=== PATIENT | female | born 1980 | race Caucasian/White ===

== ENCOUNTER 2019-03-23 20:23 | Emergency (ER) | payer OTHER ==
--- NOTE | 2019-03-23 20:38 | PDOC ---
Rapid Medical Evaluation Medical Evaluation: 03/23/19 20:28 I have performed a brief in-person evaluation of this patient. The patient presents with a chief complaint of: Mid upper/CP x several months. States she sometimes notices a bulge in epigastric area that would spontaneously resolve (Has video on her phone demonstrating this). No change in BM, n/v/f/c. Seen by PMD and in UC in the past w/ no clear dx. Pertinent physical exam findings:Well roque and stable I have ordered the following:ekg The patient will proceed to the ED for further evaluation. Discharge Disposition - Diagnosis Chest pain Qualifiers: Chest pain type: unspecified Qualified Code(s): R07.9 - Chest pain, unspecified - Referrals - Patient Instructions - Post Discharge Activity
[2019-03-23 20:39] VITALS: TEMP 98; BMI 27.4
[2019-03-23 21:56] LABS: BASO % 0.2 % (0-2.0); EOS % 0.8 % (0-4.5); HEMATOCRIT 36.3 % (32.4-45.2); HEMOGLOBIN 12.3 GM/dL (10.7-15.3); LYMPH % 32.5 % (8-40); MCH 31.2 pg (25.7-33.7); MCHC 33.8 g/dl (32.0-36.0); MEAN CELL VOLUME 92.4 fl (80-96); MEAN PLT VOLUME 8.9 fl (7.5-11.1); MONO % 7.8 % (3.8-10.2); NEUT % 58.7 % (42.8-82.8); PLATELET COUNT 261 K/MM3 (134-434); RBC 3.93 M/mm3 (3.60-5.2); RDW 12.9 % (11.6-15.6); WHITE BLOOD COUNT 9.5 K/mm3 (4.0-10.0)
[2019-03-23 22:29] LABS: ALBUMIN 4.1 g/dl (3.4-5.0); ALK PHOS 61 U/L (45-117); ANION GAP 5 MMOL/L (8-16); BILIRUBIN,TOTAL 0.3 mg/dL (0.2-1); BLOOD UREA NITROGEN 13.8 mg/dL (7-18); CHLORIDE 105 mmol/L (98-107); CO2 27 mmol/L (21-32); CREATININE 0.8 mg/dL (0.55-1.3); GLUCOSE,RANDOM 85 mg/dL (74-106); LIPASE 153 U/L (73-393); POTASSIUM 4.1 mmol/L (3.5-5.1); SGOT/AST 13 U/L (15-37); SGPT/ALT 18 U/L (13-61); SODIUM 137 mmol/L (136-145); TOT PROT 7.7 g/dl (6.4-8.2)
--- NOTE | 2019-03-23 22:57 | PDOC ---
History of Present Illness - General Chief Complaint: Pain Stated Complaint: CHEST PAIN Time Seen by Provider: 03/23/19 20:35 History Source: Patient - History of Present Illness Initial Comments: 03/23/19 22:55 38y F with no significant PMH presenting to ED with complaints of a bump in the abdomen/lower chest with pain. Pt states that she has been having this problem for at least 3 years. The bump appears sporadically but assoiciated when patient flexes the neck and does a "crunching motion" when she is in bed. The bump is L sided and feels like a pam horse. She also endorses soreness in the back. She has not been taking anything for the pain. NO symptoms at this time other than back soreness. Denies n/v/d, chest pain, sob, headache, injury, abdominal surgeries. 03/24/19 08:05 Past History - Past Medical History Allergies/Adverse Reactions: Allergies Allergy/AdvReac Type Severity Reaction Status Date / Time No Known Allergies Allergy Verified 03/23/19 20:39 Home Medications: Ambulatory Orders NK [No Known Home Medication] 03/23/19 COPD: No - Psycho Social/Smoking Cessation Hx Smoking History: Never smoked Review of Systems - Review of Systems Constitutional: No: Symptoms Reported HEENTM: No: Symptoms Reported Respiratory: Yes: See HPI Cardiac (ROS): Yes: See HPI ABD/GI: Yes: See HPI : No: Symptoms Reported Musculoskeletal: Yes: See HPI Integumentary: Yes: See HPI Neurological: No: Symptoms reported *Physical Exam - Vital Signs Last Vital Signs Temp Pulse Resp BP Pulse Ox 98 F 70 16 108/67 100 03/23/19 20:35 03/23/19 21:36 03/23/19 21:36 03/23/19 21:36 03/23/19 21:36 - Physical Exam General Appearance: Yes: Nourished, Appropriately Dressed. No: Apparent Distress HEENT: positive: EOMI, GANESH, Normal ENT Inspection Neck: positive: Trachea midline, Supple. negative: Tender Respiratory/Chest: positive: Lungs Clear, Normal Breath Sounds. negative: Chest Tender Cardiovascular: positive: Regular Rhythm, Regular Rate, S1, S2. negative: Edema , JVD, Murmur Gastrointestinal/Abdominal: positive: Normal Bowel Sounds, Soft. negative: Tender Musculoskeletal: negative: CVA Tenderness, Vertebral Tenderness Extremity: positive: Normal Capillary Refill. negative: Pedal Edema Integumentary: positive: Normal Color, Dry, Warm Neurologic: positive: mechanical inspector II-XII NML intact, Fully Oriented, Alert, Normal Mood/ Affect, Normal Response, Motor Strength 06/25 ED Treatment Course - LABORATORY CBC & Chemistry Diagram: 03/23/19 21:25 03/23/19 21:25 - ADDITIONAL ORDERS Additional order review: Laboratory Results 03/23/19 21:25 Sodium 137 Potassium 4.1 Chloride 105 Carbon Dioxide 27 Anion Gap 5 L BUN 13.8 Creatinine 0.8 Est GFR (CKD-EPI)AfAm 109.16 Est GFR (CKD-EPI)NonAf 94.18 Random Glucose 85 Calcium 9.0 Total Bilirubin 0.3 AST 13 L ALT 18 Alkaline Phosphatase 61 Troponin I < 0.02 Total Protein 7.7 Albumin 4.1 Lipase 153 03/23/19 21:25 RBC 3.93 MCV 92.4 MCHC 33.8 RDW 12.9 MPV 8.9 Neutrophils % 58.7 Lymphocytes % 32.5 Monocytes % 7.8 Eosinophils % 0.8 Basophils % 0.2 Medical Decision Making - Medical Decision Making 03/24/19 08:08 38y F presenting for a bulge in the lower chest/upper abdomen. vitals wnl pt showed video of symptoms. unable to tell what is going on. ddx includes hernia, muscle impairment. PERC negative, low suspicon for guillan barre, MS, MG. will obtain basic labs, trop, ekg. labs wnl. pt not having symptoms at this time. advised to record symptoms in light and show pmd. given return precautions. dc home Discharge - Discharge Information Problems reviewed: Yes Clinical Impression/Diagnosis: Chest pain Qualifiers: Chest pain type: unspecified Qualified Code(s): R07.9 - Chest pain, unspecified Condition: Good Disposition: HOME - Admission No - Follow up/Referral - Patient Discharge Instructions Additional Instructions: You were seen in the emergency room for a bump in the chest. I do not think this is a hernia. This could be muscle related. This is not anything dangerous. You can continue doing your daily activities, no restrictions are needed. If this happens again, record it in bright light so we can see what is going on. Follow up with your primary care doctor. Come back to the emergency room for worsening pain, difficulty breathing, vomiting or if any new or concerning symptom develops. Thank you - Post Discharge Activity
--- NOTE | 2019-03-23 23:32 | PDOC ---
Documentation entered by Brice Guadalupe SCRIBE, acting as scribe for Josefa Mejia MD. Josefa Mejia MD: This documentation has been prepared by the Anayeli mcintosh Nirvannie, SCRIBE, under my direction and personally reviewed by me in its entirety. I confirm that the documentation accurately reflects all work, treatment, procedures, and medical decision making performed by me. Attending Attestation - Resident Resident Name: DoloresEsther - ED Attending Attestation I have performed the following: I have examined & evaluated the patient, The case was reviewed & discussed with the resident, I agree w/resident's findings & plan, Exceptions are as noted - HPI HPI: 03/23/19 23:18 The patient is a 38 year old female, with no significant past medical history, who presents to the emergency department with lower chest, epigastric pain. Patient notes over the course of the past 3 months she has been experiencing a bulge in her epigastric area which she can reduce herself. She denies any recent trauma to the chest. Allergies: NKDA - Physicial Exam PE: GENERAL: Awake, alert, and fully oriented, in no acute distress HEAD: No signs of trauma EYES: PERRLA, EOMI, sclera anicteric, conjunctiva clear ENT: Auricles normal inspection, hearing grossly normal, nares patent, oropharynx clear without exudates. Moist mucosa NECK: Normal ROM, supple, no lymphadenopathy, JVD, or masses LUNGS: Breath sounds equal, clear to auscultation bilaterally. No wheezes, and no crackles HEART: Regular rate and rhythm, normal S1 and S2, no murmurs, rubs or gallops ABDOMEN: Soft, nontender, normoactive bowel sounds. No guarding, no rebound. No masses EXTREMITIES: Normal range of motion, no edema. No clubbing or cyanosis. No cords, erythema, or tenderness NEUROLOGICAL: Cranial nerves II through XII grossly intact. Normal speech, normal gait. Motor and sensation intact SKIN: Warm, dry, normal turgor, no rashes or lesions noted. SPINE: No midline tenderness. +Soft tissue tenderness in the L rhomboid area. No overlying skin changes. - Medical Decision Making Pt has a video on her phone that she took the last time the symptoms occurred, however, it was taken in the dark and it is very difficult to see what was happening. This may be a defect in the intercostal muscle, but it is difficult to say without seeing it as it occurs. No mass visualized. There is no popping sensation to imply pathology with the rib itself. The description would imply this is muscular and possibly a small hernia. No indication for imaging at this point, as the symptoms are not occurring at present, and would expose patient to radiation to the breasts with very low likelihood of any finding. Recommended outpatient f/u, but also to record in bright light if it occurs again.
[2019-03-23 23:55] VITALS: BP 120/76; PULSE 78
--- NOTE | 2019-03-24 15:55 | EKG ---
Test Reason : Blood Pressure : / mmHG Vent. Rate : 073 BPM Atrial Rate : 073 BPM P-R Int : 178 ms QRS Dur : 090 ms QT Int : 398 ms P-R-T Axes : 042 070 050 degrees QTc Int : 438 ms NORMAL SINUS RHYTHM INCOMPLETE RBBB ABNORMAL ECG Confirmed by MD SHERINE, ANILA ([id number]) on 03/24/2019 3:55:31 PM Referred By: Confirmed By:ANILA BASURTO MD
== END 2019-03-24 00:02 | disposition home or self-care (01) ==
LOC: JER 20:23
DX: R07.9 Chest pain, unspecified (principal)
CPT/HCPCS: 36415; 80053; 83690; 84484; 85025; 93005; 93010; 99283-25

== ENCOUNTER 2022-08-12 09:01 | Emergency (ER) | payer BC, OTHER ==
[2022-08-12 09:30] VITALS: BP 121/71; PULSE 88; RESP 16; TEMP 98.6; BMI 26.6
[2022-08-12] MEDS ORDERED: ACETAMINOPHEN 500 MG TABLET (FP) PO ONE (10:12)
[2022-08-12] MEDS ORDERED: LIDOCAINE 5% TOPICAL PATCH TP ONE (10:12)
[2022-08-12] MEDS ORDERED: KETOROLAC TROMETHAMINE 30 MG/1 ML VIAL IM ONE (10:12)
[2022-08-12] MEDS ORDERED: METHOCARBAMOL 500 MG TABLET PO ONE (10:12)
[2022-08-12 10:27] LABS: EPI CELLS >36 /uL (0-25.1); HYALINE CASTS 1 /uL (0-3.1); PH,URINE 6.5 (5.0-8.0); URINE APPEARANCE CLEAR; URINE BACTERIA 2433 /uL (0-1359); URINE BILIRUBIN NEGATIVE (NEGATIVE); URINE COLOR YELLOW; URINE GLUCOSE (UA) NEGATIVE (NEGATIVE); URINE KETONE NEGATIVE (NEGATIVE); URINE LEUK ESTERASE 2+ (NEGATIVE); URINE NITRITE NEGATIVE (NEGATIVE); URINE PROTEIN 1+ (NEGATIVE); URINE RBC 29 /uL (0-23.9); URINE WBC 252 /uL (0-25.8)
[2022-08-12] MEDS ORDERED: METHOCARBAMOL 500 MG TABLET ONE (10:57)
[2022-08-12] MEDS ORDERED: ACETAMINOPHEN 325 MG TABLET (FP) ONE (10:58)
[2022-08-12] MEDS ORDERED: LIDOCAINE 5% TOPICAL PATCH ONE (11:01)
[2022-08-12] MEDS ORDERED: KETOROLAC TROMETHAMINE 30 MG/1 ML VIAL ONE (11:01)
[2022-08-12] MEDS ORDERED: ACETAMINOPHEN 500 MG TABLET (FP) ONE (11:08)
[2022-08-12] MEDS ORDERED: LIDOCAINE PATCH REMOVAL MC SCH (22:00)
== END 2022-08-12 12:34 | disposition home or self-care (01) ==
LOC: JER 09:01 → JERFT 09:01
PROC: 3E0233Z Introduction of Anti-inflammatory into Muscle, Percutaneous Approach (ICD-10-PCS; principal; 2022-08-12)
DX: M54.9 Dorsalgia, unspecified (principal); G89.29 Other chronic pain
CPT/HCPCS: 72100-TC-FY; 81003; 84703; 99284-25